=== PATIENT | male | born 1990 | race Two or more races ===

== ENCOUNTER 2022-02-23 12:02 | Emergency (ER) | payer OTHER ==
[~2022-02-23] VITALS: Ht 170.2 cm; Wt 136.1 kg
[2022-02-23 12:24] VITALS: BP 136/81
--- NOTE | 2022-02-23 13:24 | NUR ---
Patient discharged to home in stable condition. Written and verbal after care instructions given. Patient verbalizes understanding of instruction.
== END 2022-02-23 13:25 | disposition home or self-care (01) ==
LOC: ER 12:13
DX: K62.89 Other specified diseases of anus and rectum (principal); Z60.2 Problems related to living alone

== ENCOUNTER 2023-09-20 03:07 | Inpatient (IN) | payer OTHER ==
[~2023-09-20] VITALS: Ht 170.2 cm; Wt 142.9 kg
[2023-09-20] MEDS ORDERED: ZOLPIDEM TARTRATE 5 MG TABLET PO PRN (04:00)
[2023-09-20] MEDS ORDERED: ACETAMINOPHEN 650 MG/20.3 ML UDC PO PRN (04:00)
[2023-09-20] MEDS: IV NS 0.9% 1,000 ML IV PRN (04:18)
[2023-09-20 06:19] LABS: BASOPHILS % (AUTO) 0.8 % (0.0-2.0); EOSINOPHILS # (AUTO) 0.1 K/uL (0.0-0.7); EOSINOPHILS % (AUTO) 2.4 % (0.0-6.0); HEMATOCRIT 46 % (39-51); HEMOGLOBIN 15.1 g/dL (13.5-17.5); LYMPHOCYTES # (AUTO) 1.6 K/uL (0.8-4.8); LYMPHOCYTES % (AUTO) 26.2 % (20.0-44.0); MEAN CORPUSCULAR HEMOGLOBIN 31 PG (26.0-33.0); MEAN CORPUSCULAR HGB CONC 33 g/dl (31.0-36.0); MEAN CORPUSCULAR VOLUME 94 fL (80-96); MONOCYTES # (AUTO) 0.5 K/uL (0.1-1.30); MONOCYTES % (AUTO) 7.7 % (2.0-12.0); NEUTROPHILS # (AUTO) 3.9 K/uL (1.8-8.9); NEUTROPHILS % (AUTO) 62.9 % (43.0-81.0); PLATELET COUNT (AUTO) 248 K/uL (150-450); RED BLOOD CELL COUNT(AUTO) 4.82 MIL/uL (4.5-6.0); RED CELL DISTRIBUTION WIDTH 14.1 % (11.5-15.0); WHITE BLOOD COUNT (AUTO) 6.2 K/uL (4.3-11.0)
[2023-09-20 06:48] LABS: CALCIUM, SERUM 8.8 mg/dL (8.5-10.1); CREATININE 0.8 mg/dL (0.6-1.3); MAGNESIUM 2.4 mg/dL (1.8-2.4); PHOSPHORUS 3.3 mg/dL (2.5-4.9); POTASSIUM 3.4 mmol/L (3.5-5.1)
[2023-09-20 08:00] VITALS: BP 101/65; TEMP 97.9; O2SAT 95
[2023-09-20] MEDS ORDERED: ENOXAPARIN SODIUM 150 MG/ML DISP.SYRIN SQ SCH (09:00)
[2023-09-20] MEDS: APIXABAN 5 MG TABLET PO SCH ×2 (09:31→21:51)
[2023-09-20] MEDS ORDERED: POTASSIUM CHLORIDE 20 MEQ TAB.PRT.SR PO SCH (10:30)
[2023-09-20] MEDS: LEVETIRACETAM (250 MG) 250 MG TABLET PO SCH ×2 (15:12→21:03)
[2023-09-20 15:40] VITALS: BP 128/83; TEMP 97.9; O2SAT 93
[2023-09-20 18:59] VITALS: BP 101/65; TEMP 97.9; O2SAT 95
[2023-09-20 20:00] VITALS: BP 112/68; TEMP 98.6; O2SAT 94
[2023-09-21] VITALS (7 sets, daily range): BP systolic 101–120; BP diastolic 67–82; TEMP 97.5–98.8; O2SAT 94–97
[2023-09-21 05:59] LABS: BASOPHILS % (AUTO) 0.6 % (0.0-2.0); EOSINOPHILS # (AUTO) 0.2 K/uL (0.0-0.7); EOSINOPHILS % (AUTO) 3.5 % (0.0-6.0); HEMATOCRIT 45 % (39-51); HEMOGLOBIN 15.1 g/dL (13.5-17.5); LYMPHOCYTES # (AUTO) 1.9 K/uL (0.8-4.8); LYMPHOCYTES % (AUTO) 33.3 % (20.0-44.0); MEAN CORPUSCULAR HEMOGLOBIN 31 PG (26.0-33.0); MEAN CORPUSCULAR HGB CONC 33 g/dl (31.0-36.0); MEAN CORPUSCULAR VOLUME 94 fL (80-96); MONOCYTES # (AUTO) 0.6 K/uL (0.1-1.30); MONOCYTES % (AUTO) 10.6 % (2.0-12.0); NEUTROPHILS # (AUTO) 2.9 K/uL (1.8-8.9); PLATELET COUNT (AUTO) 245 K/uL (150-450); RED BLOOD CELL COUNT(AUTO) 4.82 MIL/uL (4.5-6.0); RED CELL DISTRIBUTION WIDTH 14.1 % (11.5-15.0); WHITE BLOOD COUNT (AUTO) 5.6 K/uL (4.3-11.0)
[2023-09-21 06:16] LABS: CALCIUM, SERUM 8.8 mg/dL (8.5-10.1); CREATININE 0.7 mg/dL (0.6-1.3); MAGNESIUM 2.2 mg/dL (1.8-2.4); PHOSPHORUS 4.1 mg/dL (2.5-4.9); POTASSIUM 3.9 mmol/L (3.5-5.1)
[2023-09-21] MEDS: IV NS 0.9% 1,000 ML IV PRN (06:28)
[2023-09-21] MEDS: LEVETIRACETAM (250 MG) 250 MG TABLET PO SCH ×2 (08:59→21:22)
[2023-09-21] MEDS: APIXABAN 5 MG TABLET PO SCH ×2 (09:00→21:23)
[2023-09-21] MEDS ORDERED: LEVE250T2 PO (14:40)
[2023-09-21] MEDS ORDERED: APIX5TAB PO (14:40)
[2023-09-21] MEDS ORDERED: GADOTERATE MEGLUMINE 10 MMOL/20 ML VIAL IV ONE (15:16)
[2023-09-22 01:16] VITALS: BP 123/71; TEMP 97.9; O2SAT 93
[2023-09-22 01:17] VITALS: BP 120/76; O2SAT 100
[2023-09-22 04:21] VITALS: BP 117/73; TEMP 97.9; O2SAT 98
[2023-09-22 05:50] LABS: BASOPHILS # (AUTO) 0.1 K/uL (0.0-0.2); EOSINOPHILS # (AUTO) 0.3 K/uL (0.0-0.7); EOSINOPHILS % (AUTO) 3.7 % (0.0-6.0); HEMATOCRIT 48 % (39-51); HEMOGLOBIN 15.9 g/dL (13.5-17.5); LYMPHOCYTES # (AUTO) 1.9 K/uL (0.8-4.8); LYMPHOCYTES % (AUTO) 27.7 % (20.0-44.0); MEAN CORPUSCULAR HEMOGLOBIN 31 PG (26.0-33.0); MEAN CORPUSCULAR HGB CONC 33 g/dl (31.0-36.0); MEAN CORPUSCULAR VOLUME 95 fL (80-96); MONOCYTES # (AUTO) 0.5 K/uL (0.1-1.30); MONOCYTES % (AUTO) 7.6 % (2.0-12.0); PLATELET COUNT (AUTO) 244 K/uL (150-450); RED BLOOD CELL COUNT(AUTO) 5.09 MIL/uL (4.5-6.0); RED CELL DISTRIBUTION WIDTH 14.1 % (11.5-15.0); WHITE BLOOD COUNT (AUTO) 6.9 K/uL (4.3-11.0)
[2023-09-22 06:13] LABS: CALCIUM, SERUM 9.1 mg/dL (8.5-10.1); CREATININE 0.8 mg/dL (0.6-1.3); MAGNESIUM 2.2 mg/dL (1.8-2.4); PHOSPHORUS 4.6 mg/dL (2.5-4.9)
[2023-09-22] MEDS: IV NS 0.9% 1,000 ML IV PRN (07:37)
[2023-09-22] MEDS: LEVETIRACETAM (250 MG) 250 MG TABLET PO SCH (09:13)
[2023-09-22] MEDS: APIXABAN 5 MG TABLET PO SCH (09:15)
[2023-09-22 10:49] VITALS: BP 116/74; TEMP 97.9; O2SAT 95
[2023-09-27] MEDS ORDERED: APIXABAN 5 MG TABLET PO SCH (09:30)
== END 2023-09-22 17:55 | disposition home or self-care (01) | DRG 175 ==
LOC: MED 03:07 → TELE 03:19
PROVIDERS: ADMIT Internal Medicine; ATTEND Internal Medicine
DX: I26.99 Other pulmonary embolism without acute cor pulmonale (principal); S06.33AA Contusion and laceration of cerebrum, unspecified, with loss of consciousness status unknown, initial encounter; Z79.899 Other long term (current) drug therapy; Z86.69 Personal history of other diseases of the nervous system and sense organs; E87.5 Hyperkalemia; E66.9 Obesity, unspecified; Z80.3 Family history of malignant neoplasm of breast; G47.33 Obstructive sleep apnea (adult) (pediatric); Z82.0 Family history of epilepsy and other diseases of the nervous system; G40.909 Epilepsy, unspecified, not intractable, without status epilepticus; X58.XXXA Exposure to other specified factors, initial encounter; Y92.9 Unspecified place or not applicable
CPT/HCPCS: 36415; 70553-TC; 80048-TC; 80061-TC; 83735-TC; 84100-TC; 85025-TC; 85378-TC; 93307-TC; 93880-TC; 93970-TC; A4223; A9575; G0378; J1650; J7030